=== PATIENT | male | born 1960 | race African-American/Black ===

== ENCOUNTER → 2019-12-06 08:47 | Outpatient (CLI) | payer OTHER, SELFPAY ==
--- NOTE | ~2019-12-06 | XR_ITS ---
XR chest 2V DATE: 12/06/2019 09:14 INDICATION: History of pneumonia TECHNIQUE: PA and lateral views COMPARISON: 11/24/2018 PA and lateral chest FINDINGS: Normal heart size. No hilar or mediastinal enlargement. No pulmonary infiltrate or consolid ation, pleural effusion or pulmonary vascular congestion or pneumothorax is detected. IMPRESSION: No active cardiopulmonary disease Reviewed, dictated and finalized at location A.
== END ==
PROVIDERS: PCP Physician Assistant; Visit Provider Physician Assistant
DX: Z87.01 Personal history of pneumonia (recurrent) (principal)
CPT/HCPCS: 71046